=== PATIENT | female | born 1985 | race Caucasian/White ===

== ENCOUNTER 2017-02-13 17:45 | Emergency (ER) | payer OTHER ==
[2017-02-13 20:56] VITALS: BP 112/68
== END 2017-02-13 20:56 | disposition home or self-care (01) ==
LOC: ED 17:45
DX: S83.92XA Sprain of unspecified site of left knee, initial encounter (principal); X58.XXXA Exposure to other specified factors, initial encounter; Y93.89 Activity, other specified; Y99.8 Other external cause status; Y92.89 Other specified places as the place of occurrence of the external cause